=== PATIENT | female | born 1985 ===

== ENCOUNTER 2024-11-23 14:42 | Outpatient (AMB) | payer OTHER, SELFPAY ==
--- OUTSIDE RECORDS SUMMARY | 2024-11-23 14:45 | XMS_ITS | Clinical Summary ---
Author Organization [facility] [address] [facility] Address [address] [place] [address] Phone Care Team Providers Care [employer] Name Role Phone Dc Santiago MD Primary Care Provider [phone] Allergies Active Allergy Reactions Criticality Noted Date Comments Benzocaine Hives Low 11/11/2007 Penicillins Hives High 10/07/2005 Medications vit B complx/folic acid/lysine (B COMPLEX VITAMINS PO) Take by mouth. Active ibuprofen (ADVIL,MOTRIN) 600 mg tablet Take 1 tablet (600 mg total) by mouth every 6 (six) hours if needed (Pain). 06/16/2023 Active magnesium oxide (MAG-OX) 400 mg magnesium tablet Take 1 tablet (400 mg total) by mouth 1 (one) time each day. 30 tablet 2 06/15/2024 Active riboflavin (VITAMIN B2) 400 mg tablet Take 1 tablet (400 mg total) by mouth 1 (one) time each day. 60 tablet 2 06/15/2024 Active rizatriptan (MAXALT) 10 mg tablet TAKE 1 TABLET BY MOUTH 1 TIME IF NEEDED FOR MIGRAINE (MAY REPEAT X1) IN 2 HOURS IF UNRESOLVED. DO NOT EXCEED 30 MG IN 24 HOURS. 9 tablet 07/12/2024 Active amitriptyline (ELAVIL) 50 mg tablet Take 1 tablet (50 mg total) by mouth at bedtime. Active Active Problems Problem Noted Date Diagnosed Date Migraine aura occurring with and without headach e 03/25/2024 Back pain with sciatica 06/28/2023 Overview (04/25/2024): See note June 27, 2022 Neck pain on right side 06/28/2023 Overview (04/25/2024): See note June 27, 2022 Assessment & Plan (06/29/2024 4:09 PM EDT): Patient describes right neck pain and stiffness, thinning of her right sternocleidomastoid muscle, subjective weakness of the right arm, pain down the right posterior arm. 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 Her right upper trapezius always seems and spasm. She has history of chronic neck and back pain that started about 10 years ago, however this is different where she will now experience symptoms of iqis-[id number] into the right face, a pulling sensation up to the right eye, occiput and behind the right ear. She does stretches every day. Her neck feels fatigued, she wears a neck pillow while driving. She tried taking time off of work for 6 weeks last year, states symptoms resolved during that time, also used cyclobenzaprine. This year she has had to go from 5 days a week down to 3 days a week, if she does 2 days in a row the pain is severe. She now is taking ibuprofen daily. She also uses lidocaine patches or menthol rubs for temporary improvement. She states when her MRI was done last year they told her she had C4-5 arthropathy. At times she will also get numbness tingling to the fourth and fifth digits, occasionally the first digit, today she is noticing numbness in the whole hand. She has tried massage, in remote past was seeing a chiropractor regularly back in 2017. She has been seeing neurology for headaches, 2 weeks ago started magnesium, riboflavin, was prescribed rizatriptan as needed. 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 I reviewed MRI images with patient in detail. Of note she also had MRI lumbar spine that was read as normal. She had brain MRI with and without contrast with no acute findings, although she was noted to have minimal T2/FLAIR hyperintense foci in the white matter, nonspecific. Ms. Barnes has noted worsening right neck pain and weakness, has had to cut back at work to part-time, at times gets numbness tingling into the right arm and hand and face. She did have C4-5 right epidural/perineural cyst on MRI last year, we will check an updated MRI since her symptoms have worsened. Since she is having symptoms in the face, we can get updated brain MRI as well. I reviewed her case and C- spine MRI with Dr. Walsh. We talked about conservative treatment options she could try like PT, acupuncture, TENS unit. She has EMG/NCS study in August scheduled, which could help with ruling out ulnar neuropathy and carpal tunnel syndrome. I will call her with results of MRI once completed. All questions answered on today's visit. Right facial numbness 06/28/2023 ASCUS with positive high risk HPV cervical 09/25 Previous delivery affecting 1 Elevated glucose tolerance test 12/03/2020 Overview (04/25/2024): 11/2020-1hr GTT- 185, 3hr GTT ordered Pt declines 3hr GTT- unable to tolerate 3hr GTT last - will check BS QID x2 weeks Readings mostly normal- only about 3 elevated in total Chronic bilateral low back pain without sciatica 09/03/2020 Hip pain, chronic, right 09/03/2020 Varicose veins during , antepartum 07/2020 Anemia affecting in third trimester Overview (04/25/2024): Iron supplements ordered 12/31- taking Last Assessment & Plan: Encouraged her to continue her iron. Encounters Date Type Department Care Team Description 08/28/2024 Telephone [facility] [address] [phone] Verna Good MA [facility] 08/28/2024 Telephone [facility] [address] [facility] [address] [place] [phone] Verna Good [place] 08/24/2024 3:00 PM EDT Office Visit [facility] [place] [facility] [place] [address] [facility] [address] [place] [phone] Jason Washington MD Migraine aura occurring with and without headache (Primary Dx); Neck pain on right side from Last 3 Months Immunizations Name Administration Dates Next Due HPV, Quadrivalent 12/09/2009,09/20/2009 Hepatitis B Pediatric (Enger ix B; Recombivax HB) to less than 20 yo 04/05/2003,06/21/2002,05/18/2002 MMR, measles mumps and rubel la Live (Priorix; M-M-R II) 12mo and older 05/18/2002 Td Tetanus diptheria (Tdvax) 7yo and older 04/05 Tdap Tetanus diptheria acell ular pertussis (Boostrix; Adacel) 7yo and older 10/29/2011 Varicella live (Varivax) 12mo and older 06/22/19 03,05/18/2002 Surgical History Surgery Date Site/Laterality Comments SECTION 04/19/2006 nrfhr Medical History Medical History Date Comments Positive PPD 02/28/2009 6 mo RPT negativ e; no tx Anemia during 04/25/2012 Migraine Chronic back pain followed by vidhya ye Cervical arthritis Family History Medical History Relation Name Comments No Known Problems Brother No Known Problems Daughter 1 Hypertension Father Other: TIA Father Pancreatic cancer Father No Known Problems Maternal Grandfather No Known Problems Maternal Grandmother No Known Problems Mother Diabetes Paternal Grandmother No Known Problems Son Breast cancer Neg Hx Colon cancer Neg Hx Heart attack Neg Hx Ovarian cancer Neg Hx Prostate cancer Neg Hx Stroke Neg Hx Uterine cancer Neg Hx Relation Name Status Comments Brother Alive Healthy Daughter 1 Alive 2006; healthy Daughter 2 Alive Daughter 3 Alive Father Alive Hypertension, T IA Maternal Grandfather Maternal Grandmother Alive Mother Alive Healthy Paternal Grandfather Paternal Grandmother Alive Son Alive 2012; healthy Social History Tobacco Use Types Packs/Day Years Used Date Smoking Tobacco: Never Smokeless Tobacco: Never Tobacco Cessation:Counseling Given: Not Answered Alcohol Use Standard Drinks/Week Comments No 0 (1 standard drink = 0.6 oz pur e alcohol) Housing Instability Answer Date Recorde d Are you worried that in the next 2 months you may not have stable housing? No 03/30/2024 Food Access & Nutrition Answer Date Rec orded Do you have access to a vari ety of food including fruits and vegetables? Yes 03/30/2024 Access to Healthcare Answer Date Record ed Within the last 3 months, ho w many times did you visit the emergency department for your medical care? 0 03/30/2024 Health Literacy Answer Date Recorded How often do you need to hav e someone help you when you read instructions, pamphlets, or other written material from your doctor or pharmacy? Never 03/30/2024 Caregiver: How often do you need to have someone help you when you read instructions, pamphlets, or other written material from your doctor or pharmacy? Not on file 03/30/2024 Transportation Answer Date Recorded Has the lack of transportati on kept you from meetings, work, or from getting things needed for daily living? No Has the lack of transportati on kept you from medical appointments or from getting medications? No 03/30/2024 Social Isolation Answer Date Recorded How often do you feel lonely or isolated from th ose around you? Never 03/30/2024 Food Risk Answer Date Recorded Within the past 12 months we worried whether our food would run out before we got money to buy more. Never true 03/30/2024 Within the past 12 months th e food we bought just didn't last and we didn't have money to get more. Never true 03/30/2024 Dependent Care Answer Date Recorded Do you need help finding or paying for care for your loved ones. For example, child welfare manager or elderly care for an older adult? No 03/30/2024 Education Answer Date Recorded Do you think completing more education or training, like finishing a GED, going to college, or learning a trade, would be helpful for you? Patient declined 03/30/2024 Employment and Income Answer Date Recor ded During the last four weeks, have you been actively looking for work? No 03/30/2024 Living Situation Answer Date Recorded What is your living situation? 1 05/31/2023 Comments No Sex and Gender Information Value Date Recorded Sex Assigned at Not on file Legal Sex Female 9:18 AM EST Gender Identity Not on file Sexual Orientation Not on file Obstetrics History Last Filed Vital Signs Vital Sign Reading Time Taken Comments Blood Pressure 101/70 08/24/2024 3:01 PM EDT Pulse 80 08/24/2024 3:01 PM EDT Temperature 36.4 C (97.5 F) 06/15/2024 9:15 AM EST Respiratory Rate 14 03/31/2024 9:48 AM EST Oxygen Saturation 99% 08/24/2024 3:01 PM EDT Inhaled Oxygen Concentration - - Weight 56.7 kg (125 lb) 08/24/2024 3:01 PM EDT Height 162.6 cm (5' 4 ) 08/24/2024 3:01 PM EDT Body Mass Index 21.46 08/24/2024 3:01 PM EDT Plan of Treatment Upcoming Encounters Date Type Department Care Team (Late st Contact Info) Description 11/29/2024 8:30 AM EDT Office Visit [facility] [address] [facility] [address] [place] [phone] Jason Washington MD [address] [facility] [address] [place] [phone] Health Maintenance Due Date Last Done Comments HPV Vaccines (3 - 3-dose series) 03/22/2010 12/09/2009, 09/20/2009 DTaP,Tdap,and Td Vaccines (3 - Td or Tdap) 10/28/2021 10/29/2011, 04/05/2003 COVID-19 Vaccine ( - 2023-2 5 season) 2023 Depression Screening 04/19/2024 03/30/2024, 02/14/2024 Influenza Vaccine (#1) 2024 Social Influencers of Health Screening 03/30/2025 03/30/2024 Cervical Cancer Screening: HPV 11/04/2028 11/05/2023 Cholesterol Screening (Lipid Panel) 02/14/2029 02/15/2024, 02/15/2024 MMR Vaccines Completed 05/18/2002 Varicella Vaccines Completed 06/21/2002, 05/18/2002 Hepatitis B Vaccines Completed 04/05/2003, 06/21/2002, 05/18/2002 HIV Screening Completed 08/20/2020 Hepatitis C Screening Completed 08/20/2020 HIB Vaccines Aged Out No longer eligi ble based on patient's age to complete this topic Hepatitis A Vaccines Aged Out No long er eligible based on patient's age to complete this topic IPV Vaccines Aged Out No longer eligi ble based on patient's age to complete this topic Meningococcal ACWY Vaccine Aged Out N o longer eligible based on patient's age to complete this topic Meningococcal B Vaccine Aged Out No l onger eligible based on patient's age to complete this topic Pneumococcal Vaccine: Pediatrics (0 to 5 Years) and At-Risk Patients (6 to 49 Years) Aged Out No longer eligible b ased on patient's age to complete this topic RSV Immunization Patients Under 20 months Aged Out No longer eligible b ased on patient's age to complete this topic Procedures Procedure Name Priority Date/Time Associated Diagnosis Comments LIPID PANEL Routine 02/15/2024 DEPRESSION SCREENING Routine 02/14/2024 HPV Routine 11/05/2023 HEPATITIS C SCREENING Routine 08/20/2020 HIV SCREENING Routine 08/20/2020 from Last 3 Months or Most Recently Relevant to Health Maintenance Results * Lipid panel (02/15/2024) Pathologist [facility] LDL/HDL Ratio 3 0 - 4 Triglycerides 78 0 - 150 mg/dL Cholesterol 156 0 - 200 mg/dL HDL 49 >=40 mg/dL LDL Cholesterol 92 0 - 100 mg/dL Blood Venous blood specimen / Unknown us Historical Provider LAB BLOOD ORDERABLES Margie l Result * Depression Screening (02/14/2024) Pathologist [facility] Depression Screening Abstracted us Historical Provider HEALTH MAINTENANCE Final Result * Cervical Cancer Screening: HPV (11/05/2023) Pathologist [facility] Cervical Cancer Screening: HPV Positive, abstracted Historical Provider HEALTH MAINTENANCE Final Result * HIV Screening (08/20/2020) Pathologist [facility] HIV Screening Abstracted Historical Provider HEALTH MAINTENANCE Final Result * Hepatitis C Screening (08/20/2020) Pathologist [facility] Hepatitis C Screening Abstracted Historical Provider HEALTH MAINTENANCE Final Result from Last 3 Months or Most Recently Relevant to Health Maintenance Insurance [facility] [employer] Care Teams Industrial Engineering Relationship Specialty Start Date End Date Dc Santiago MD [address] [place] [address] PCP - General Internal Medicine 04/23/21
--- NOTE | 2024-11-23 14:48 | A.OFFVIS_ITS ---
Intake Visit Reasons: 2m migraine HPI Comments Details: 38 yo RH woman who was born in [facility] [place] with right arm/shoulder and neck subjective weakness (exam did not confirm weakness) with no EMG/NCS evidence of neuropathy, selective muscle atrophy of right SCM, probably better explained as myofacial pain syndrome, and migraine. (Initially seen in Jul 2024: She was born through normal vaginal delivery and her presentation was breach. 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 But she recovered and later in childhood did not have any issues with right arm or hand. 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 She continued working and in 2015, started seeing a chiropractitioner. It helped to alleviate some pain. She also started swimming to strengthen her muscles. In term of symptoms, in Feb she started to notice pins and needle on right side of neck and face up to her eye. She was also feeling pulling behind her ears and in TMJ areas. She also suffered migraines and had been in hospital for migraine twice. Now her severe headaces were 3-4 times a year with difficulty talking and not able to do anything. Half of her body will get numb. Lesser headaches happened 3-4 times a week.) She had left occipital nerve in August of 2024 after which she felt significantly better and she was able to do things again. Recently, her symptoms came back and she was asking if the block can be done again. Review of Systems Const Details: Pain in right side of the neck and head. Physical Exam Neuro Other: Mental Status: Alert and oriented to person, place, and time. Normal attention. Normal spontaneous speech, fluency, and comprehension. No obvious issues with mood and memory. Affect is appropriate. Cranial Nerves: CN II: Visual clement full to confrontation, visual acuity intact. CN III, IV, : Pupils equal, round, reactive to light and accommodation. Extraocular movements are normal. CN V: Facial sensation is normal. CN VII: Facial movements symmetrical. CN VIII: Hearing intact to bedside conversation is normal. CN IX, X: Palate elevates symmetrically. CN XI: Shoulder shrug and head turn symmetrical. CN XII: Tongue midline without atrophy or fasciculations. Motor: Bulk and tone normal in all extremities. No significant muscle weakness in arms and legs. No drift. Reflexes: Deep tendon reflexes 2+ and symmetric. Plantar response down-going bilaterally. Coordination: Xrlzoy-mf-dfjo and fufi-jq-[id number] testing normal. No dysmetria. Gait and Station: No obvious gait abnormality. No ataxia or instability. Sensory: Intact to light touch, pinprick, and vibration. Romberg is negative. Extrapyramidal: Full facial expressions and blinking. No rigidity. Movements are appropriate with no tremor or abnormality. Speech: Normal; no dysarthria or tremor. Office Procedures Nerve Block CPT: 22241-Enpuytf Occipital Procedure code (CPT) selection complete Office Meds lidocaine (PF) 10 mg/mL (1 %) injection solution Performing Provider: Krzysztof Herndon MD Performing Location: [facility] Administered by: Krzysztof Herndon MD on 11/23/24 15:09 Dose Route Admin Location Dispensed Lot Number Expiration Date [facility] [place]NOTE 2] Cleat Blanker 2 mL peripheral nerve block office 2 mL Total Dispensed Waste 2 mL 0 % Assessment & Plan Assessment & Plan (1) Hemiplegic migraine: Comment: Meds tried: Amitriptyline, duloxetine NCV/EMG UE (in office) No significant abnormality noted in this study. 08/16/24. MRI brain WO at [facility] in Jun: WNL MRI C spine WO at [facility] in Jun: R mid cervical perineural cyst, otherwise ok Code(s): G43.409 - Hemiplegic migraine, not intractable, without status migrainosus Category: Medical Qualifiers: Status migrainosus presence: without status migrainosus Intractability: not intractable Qualified Code(s): G43.409 - Hemiplegic migraine, not intractable, without status migrainosus (2) Migraine with aura, not intractable, without status migrainosus: Code(s): G43.109 - Migraine with aura, not intractable, without status migrainosus Category: Medical (3) Myofascial pain syndrome: Code(s): M79.18 - Myalgia, other site Category: Medical (4) Myopathy: Code(s): G72.9 - Myopathy, unspecified Category: Medical (5) Occipital neuralgia of right side: Code(s): M54.81 - Occipital neuralgia Category: Medical Plan Impression: 1. Migraine with aura 2. Hemiplegic migraine 3. Right occipital neuralgia Recommendations 1. Right occipital nerve block which worked well for her last time and she wanted to have it done again. 2. She has stopped taking duloxetine saying that it was causing side-effects. If needed, I would retry amitriptyline or in alternate medicine like topiramate. Orders: Orders AMB Nerve Block Today M54.81 - Occipital neuralgia Coding Level of Care Code Est Pt Level 4 (87857) Diagnoses Hemiplegic migraine without status migrainosus, not intractable G43.409 Status migrainosus presence: without status migrainosus Intractability: not intractable Migraine with aura, not intractable, without status migrainosus G43.109 Myofascial pain syndrome M79.18 Myopathy G72.9 Occipital neuralgia of right side M54.81 CPT Codes Nerve Block - CPT: 36164-Kuwbsij Occipital ([id number])
== END 2024-11-23 15:06 | disposition home or self-care (01) ==
LOC: HO.HSM 14:43
PROVIDERS: PCP Internal Medicine; Visit Provider Psychiatry & Neurology Neurology
DX: G43.409 Hemiplegic migraine, not intractable, without status migrainosus (principal); G43.109 Migraine with aura, not intractable, without status migrainosus; M79.18 Myalgia, other site; G72.9 Myopathy, unspecified; M54.81 Occipital neuralgia
CPT/HCPCS: 64405; 99214

== ENCOUNTER → 2024-11-23 14:42 | Outpatient (BNVA) | payer OTHER, SELFPAY | PROVIDERS: PCP Internal Medicine; Visit Provider Psychiatry & Neurology Neurology | DX: G43.409 Hemiplegic migraine, not intractable, without status migrainosus (principal); M79.18 Myalgia, other site; G72.9 Myopathy, unspecified; M54.81 Occipital neuralgia | CPT/HCPCS: 64405; 99212; J1010 ==

== ENCOUNTER 2025-03-01 13:47 | Outpatient (AMB) | payer OTHER, SELFPAY ==
--- NOTE | 2025-03-01 14:03 | A.OFFVIS_ITS ---
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 (Initially seen in Jul 2024: She was born through normal vaginal delivery and her presentation was breach. 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 But she recovered and later in childhood did not have any issues with right arm or hand. 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 She continued working and in 2015, started seeing a chiropractitioner. It helped to alleviate some pain. She also started swimming to strengthen her muscles. In term of symptoms, in Feb she started to notice pins and needle on right side of neck and face up to her eye. She was also feeling pulling behind her ears and in TMJ areas. She also suffered migraines and had been in hospital for migraine twice. Now her severe headaches were 3-4 times a year with difficulty talking and not able to do anything. Half of her body will get numb. Lesser headaches happened 3-4 times a week.) She has been using a Chinese medicine on as needed basis (combination of acetaminophen, caffeine, and drotoverine HCL). She is presenting with follow-up concerns regarding headache management, notably the outcome of a prior nerve block treatment. She reports significant improvement in her headache symptoms, describing a reduction in frequency and severity since the procedure. Her migraines, typically exacerbated by seasonal changes, are concentrated on the left side with severe, intense pain. A mass, identified as a muscle spasm, becomes prominent during headache episodes. Her past selective serotonin reuptake inhibitors and serotonin- norepinephrine reuptake inhibitors treatments were stopped due to side effects. She finds relief with OTC pantalgine for acute migraines. There is a familial predisposition to migraines, and she recognizes a genetic component in her condition. Review of Systems Narrative - Neurologic: Reports reduced frequency and severity of headaches post-nerve block; describes seasonal migraines localized to the left side with intensity. - Musculoskeletal: Reports a muscular mass on the left side during headache episodes. - Other: Denies symptoms of double vision or leg weakness; no involvement of double leg work noted. Assessment & Plan Assessment & Plan (1) Hemiplegic migraine: Comment: Meds tried: Amitriptyline, duloxetine, Ubrelvy NCV/EMG UE (in office) No significant abnormality noted in this study. 08/16/24. MRI brain WO at [facility] in Jun: WNL MRI C spine WO at [facility] in Jun: R mid cervical perineural cyst, otherwise ok Code(s): G43.409 - Hemiplegic migraine, not intractable, without status migrainosus Category: Medical Qualifiers: Status migrainosus presence: without status migrainosus Intractability: not intractable Qualified Code(s): G43.409 - Hemiplegic migraine, not intractable, without status migrainosus (2) Migraine with aura, not intractable, without status migrainosus: Comment: Meds: Amitriptyline, duloxetine, Code(s): G43.109 - Migraine with aura, not intractable, without status migrainosus Category: Medical (3) Occipital neuralgia of right side: Code(s): M54.81 - Occipital neuralgia Category: Medical Plan Impression: 1. Migraine with aura 2. Hemiplegic migraine 3. Occipital neuralgia I reviewed the patient's ongoing headache management, confirming the positive impact of a nerve block on her migraines, which are now less frequent and severe. We discussed the discontinuation of previously attempted medications due to side effects and reviewed the patient's decision to utilize a Chinese med for acute symptom relief. I highlighted the genetic component of migraines within her family, offering guidance on lifestyle adjustments such as avoiding heavy lifting and exposure to triggers like cold weather. We covered the role of stress and environment in musculoskeletal symptoms linked to migraine episodes. Follow-up arrangements involve contacting me should her symptoms recur, with the option for further nerve block injections considered based on recurrence severity and frequency. Coding Level of Care Code Est Pt Level 4 (78525) Diagnoses Hemiplegic migraine without status migrainosus, not intractable G43.409 Status migrainosus presence: without status migrainosus Intractability: not intractable Migraine with aura, not intractable, without status migrainosus G43.109 Occipital neuralgia of right side M54.81
== END 2025-03-01 14:18 | disposition home or self-care (01) ==
LOC: HO.HSM 13:47
PROVIDERS: PCP Internal Medicine; Visit Provider Psychiatry & Neurology Neurology
DX: G43.409 Hemiplegic migraine, not intractable, without status migrainosus (principal); G43.109 Migraine with aura, not intractable, without status migrainosus; M54.81 Occipital neuralgia
CPT/HCPCS: 99214

== ENCOUNTER → 2025-03-01 13:47 | Outpatient (BNVA) | payer OTHER, SELFPAY | PROVIDERS: PCP Internal Medicine; Visit Provider Psychiatry & Neurology Neurology | DX: M54.81 Occipital neuralgia (principal); G43.409 Hemiplegic migraine, not intractable, without status migrainosus; G43.109 Migraine with aura, not intractable, without status migrainosus | CPT/HCPCS: 99212 ==